=== PATIENT | female | born 1965 | race Caucasian/White ===

== ENCOUNTER → 2016-12-25 08:43 | Outpatient (CLI) | payer BC ==
[~2016-12-25] VITALS: Ht 154.9 cm; Wt 145.1 kg
[2016-12-25 12:32] VITALS: Ht 154.9 cm; Wt 145.1 kg
== END | disposition home or self-care (01) ==
LOC: D.FANS 08:43
DX: E11.9 Type 2 diabetes mellitus without complications (principal); K21.9 Gastro-esophageal reflux disease without esophagitis; E66.01 Morbid (severe) obesity due to excess calories